=== PATIENT | male | born 2005 | race Two or more races ===

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

== ENCOUNTER 2024-06-20 11:41 | Inpatient (IN) | payer MEDICAID, OTHER ==
[~2024-06-20] VITALS: Ht 182.9 cm; Wt 86.4 kg
--- NOTE | 2024-06-20 12:16 | ED.PDOC ---
GI ASSESSMENT HPI Comments 18 y/o M, with no prior medical history presents to the ED for CC of abdominal pain. Patient states, he has been experiencing RLQ abdominal pain with associated nausea, vomiting, and diarrhea since last night (06/19/24). Patient denies fever, chills, sweats, body-aches, or melena. No other symptoms or modifying factors present at this time. Chief Complaint: Abdominal Pain Time Seen by MD: 12:00 Primary Care Provider: NOHEMI Mendoza Notes: Nurses Notes, Medications, Allergies Allergies: Coded Allergies: NO KNOWN ALLERGIES (Unverified , 11/19/20) Information Source: Patient Mode of Arrival: Ambulatory Timing: Hours Duration: Since onset Prehospital treatment: None Quality: None Vomitus: Watery Stool: Watery Severity: Moderate Recent: None Recent Hx of: None Pain Location: RLQ Modifying Factors: Nothing Associated sign and symptoms: Nausea, Vomiting, Diarrhea, Abdominal Pain Past Medical History PAST MEDICAL HISTORY: Denies Surgical History: Denies all surgeries Family History Family History: Unknown Social History Smoker: Non-Smoker Alcohol: Denies ETOH Use Drugs: Denies Drug Use Lives In: Home Constitutional: denies: chills, diaphoresis, fatigue, fever, malaise, sweats, weakness, others EENTM: denies: blurred vision, double vision, ear bleeding, ear discharge, ear drainage, ear pain, ear ringing, eye pain, eye redness, hearing loss, mouth pain, mouth swelling, nasal discharge, nose bleeding, nose congestion, nose pain, photophobia, tearing, throat pain, throat swelling, voice changes, others Respiratory: denies: cough, hemoptysis, orthopnea, SOB at rest, shortness of breath, SOB with excertion, stridor, wheezing, others Cardiovascular: denies: chest pain, dizzy spells, diaphoresis, Dyspnea on exertion, edema, irregular heart beat, left arm pain, lightheadedness, palpitations, PND, syncope, others Gastrointestinal: reports: abdominal pain, diarrhea, nausea, vomiting; denies: abdomen distended, blood streaked bowels, constipated, dysphagia, difficulty swallowing, hematemesis, melena, poor appetite, poor fluid intake, rectal bleeding, rectal pain, others Genitourinary: denies: burning, dysuria, flank pain, frequency, hematuria, incontinence, penile discharge, penile sore, pain, testicle pain, testicle swelling, urgency, others Neurological: denies: dizziness, fainting, headache, left sided numbness, left sided weakness, numbness, paresthesia, pre-existing deficit, right sided numbness, right sided weakness, seizure, speech problems, tingling, tremors, weakness, others Musculoskeletal: denies: back pain, gout, joint pain, joint swelling, muscle pain, muscle stiffness, neck pain, others Integumetry: denies: bruises, change in color, change in hair/nails, dryness, laceration, lesions, lumps, rash, wounds, others Allergic/Immunocompromised: denies: Difficulty Healing, Frequent Infections, Hives, Itching, others Hematologic/Lymphatic: denies: anemia, blood clots, easy bleeding, easy bruising, swollen glands, others Endocrine: denies: excessive hunger, excessive sweating, excessive thirst, excessive urination, flushing, intolerance to cold, intolerance to heat, unexplained weight gain, unexplained weight loss, others Psychiatric: denies: anxiety, bipolar disorder, depression, hopeless, panic disorder, schizophrenia, sleepless, suicidal, others All Other Systems: Reviewed and Negative Physical Exam General Appearance: No Apparent Distress, Normal HEENT: Normal ENT Inspection, Pharynx Normal, TMs Normal Neck: Full Range of Motion, Non-Tender, Normal, Normal Inspection Respiratory: Chest Non-Tender, Lungs Clear, No Accessory Muscle Use, No Respiratory Distress, Normal Breath Sounds Cardiovascular: No Edema, No Murmur, No Gallop, Normal Peripheral Pulses, Regular Rate/Rhythm Breast Exam: Deferred Gastrointestinal: No Organomegaly, No Pulsatile Mass, Normal Bowel Sounds, Tenderness (RLQ) Genitalia: Deferred Pelvic: Deferred Rectal: Deferred Extremities: No calf tenderness, Normal capillary refill, Normal inspection, Normal range of motion, Non-tender, No pedal edema Musculoskeletal : Apperance: Normal Neurologic: Alert, allergist/immunologist II-XII nml as Tested, No Motor Deficits, Normal Affect, Normal Mood, No Sensory Deficits Cerebellar Function: Normal Reflexes: Normal Skin: Dry, Normal Color, Warm Lymphatic: No Adenopathy Was a procedure done? Was a procedure done?: No GI differential Dx Differential Diagnosis: Appendicitis, Diverticular disease, Urolithiasis X-Ray, Labs, Meds, VS Vital Signs Date Time Temp Pulse Resp B/P (MAP) Pulse Ox O2 Delivery O2 Flow Rate FiO2 06/20/24 12:52 78 18 136/74 06/20/24 12:22 90 15 110/79 06/20/24 12:14 97.9 90 15 110/79 (89) 99 97.9 06/20/24 12:13 Room Air* 0 21 06/20/24 11:55 97.5 97 16 105/79 (88) 95 97.5 Lab Test 06/20/24 12:09 06/20/24 11:56 Range/Units White Blood Count 18.1 H 4.4-10.8 10^3/uL Red Blood Count 5.59 4.5-5.90 10^6/uL Hemoglobin 16.8 13.5-17.5 g/dL Hematocrit 48.3 41.0-53.0 % Mean Corpuscular Volume 86.5 80.0-100.0 fL Mean Corpuscular Hemoglobin 30.1 28.0-32.0 pg Mean Corpuscular Hemoglobin Concent 34.8 32.0-36.0 g/dL Red Cell Distribution Width 13.1 11.8-14.3 % Platelet Count 329 140-450 10^3/uL Mean Platelet Volume 7.0 6.9-10.8 fL Neutrophils (%) (Auto) 89.0 H 37.0-80.0 % Lymphocytes (%) (Auto) 4.2 L 10.0-50.0 % Monocytes (%) (Auto) 5.5 0.0-12.0 % Eosinophils (%) (Auto) 1.2 0.0-7.0 % Basophils (%) (Auto) 0.1 0.0-2.0 % Neutrophils # (Auto) 16.1 H 1.6-8.6 10 ^3/uL Lymphocytes # (Auto) 0.8 0.4-5.4 10 ^3/uL Monocytes # (Auto) 1.0 0-1.3 10 ^3/uL Eosinophils # (Auto) 0.2 0-0.8 10 ^3/uL Basophils # (Auto) 0 0-0.2 10 ^3/uL Nucleated Red Blood Cells 0.0 % Sodium Level 137 136-145 mmol/L Potassium Level 4.1 3.5-5.1 mmol/L Chloride Level 103 98-107 mmol/L Carbon Dioxide Level 27 20-31 mmol/L Anion Gap 7 5-15 Blood Urea Nitrogen 9 9-23 mg/dL Creatinine 1.04 0.700-1.30 mg/dL Glomerular Filtration Rate Calc 105 >90 mL/min BUN/Creatinine Ratio 8.7 L 10.0-20.0 Serum Glucose 105 74-106 mg/dL Lactic Acid Level 1.2 0.4-2.0 mmol/L Calcium Level 9.9 8.7-10.4 mg/dL Urine Color Yellow Yellow Urine Clarity Turbid H Clear Urine pH 6.0 5.0-9.0 Urine Specific [place] 1.021 1.001-1.035 Urine Protein 1+ H Negative Urine Ketones Negative Negative Urine Blood Negative Negative /uL Urine Nitrite Negative Negative Urine Bilirubin Negative Negative Urine Urobilinogen Normal Negative mg/dL Urine Leukocyte Esterase Negative Negative /uL Urine RBC 5 0 - 3 /hpf Urine Microscopic WBC 10 H 0-3 /HPF Urine Squamous Epithelial Cells Few <5 /hpf Urine Bacteria Many H None Seen /hpf Urine Mucus Few None Seen Urine Sperm Present None Seen /hpf Urine Glucose Normal Normal mg/dL Current Medications Medications (Trade) Dose Ordered Sig/Siomara Route Start Time Stop Time Status Last Admin Morphine Sulfate 4 mg ONCE ONCE IV 06/20/24 12:00 06/20/24 12:01 DC 06/20/24 12:22 Sodium Chloride 1,000 ml @ 1,000 mls/hr Q1H ONCE IV 06/20/24 12:00 06/20/24 12:59 DC 06/20/24 12:23 Ondansetron HCl (Zofran) 4 mg ONCE ONCE IV 06/20/24 12:00 06/20/24 12:01 DC 06/20/24 12:23 [place] [id number] Ph: [phone] DIAGNOSTIC IMAGING Diagnostic Imaging Report : [id number] Signed PATIENT: LEA FRAIRE IIACCT: [id number] UNIT: [id number] : 2005 LOC: ER ROOM / BED: / AGE / SEX: 18 / M ADM STATUS: REG ER SERVICE 1155 ORDERING PHYSICIAN: IVETTE OGDEN MD PROCEDURE(s): ABPLIV - CT AB PEL WITH IV CON ONLY REASON: rlq pain ORDER NUMBER(s): [id number], ACCESSION NUMBER(s): [id number] Exam: CT CT AB PEL WITH IV CON ONLY History: rlq pain COMPARISON: None Technique: Multidetector spiral CT of the abdomen and pelvis was performed from lung bases to pubic symphysis. Intravenous contrast was administered during this examination. Portal venous imaging was obtained. Axial, coronal and sagittal multiplanar reformats were performed by the technologist on a separate workstation. Radiation Dose : Abdomen/Pelvis: CTDIvol 7.66 mGy, DLP 469.13 mGy*cm. CONTRAST: Type of contrast: Omni 300 Contrast injected: 100 mL Findings: Lung Bases: No acute or significant lung base finding. Normal heart size. No pleural or pericardial effusion. Liver: The liver is normal in size. No focal lesions. Normal hepatic vascular enhancement. Gallbladder and biliary Tree: Unremarkable Spleen: Unremarkable Pancreas: The pancreas is normal in appearance without focal lesions or abnormal enhancement. Adrenal Glands: Unremarkable Kidneys: No hydronephrosis. Bladder: Unremarkable Bowel: The stomach is grossly normal in appearance. Small bowel and colon are normal in caliber and distribution. Normal appendix is visualized in the right lower quadrant without findings of appendicitis. Fluid density throughout the colon. Ascites: Absent Lymphadenopathy: Subcentimeter mesenteric lymph nodes. Abdominal wall and Mesentery: Unremarkable. Vasculature: The visualized abdominal aorta is normal in size and caliber. Abdominal and pelvic vessels demonstrate normal enhancement. Pelvic Organs: Unremarkable Musculoskeletal: No aggressive focal bony lesions, acute fractures or dislocation. IMPRESSION: 1. No definite acute abdominal or pelvic finding. Normal-appearing appendix identified. Fluid throughout the colon. Suspect a diarrheal illness. Clinical correlation and continued follow-up is recommended. Nonspecific mesenteric lymphadenopathy could be reactive. Radiation optimization: All CT scans at this facility use at least one of these dose optimization techniques: Automated exposure control mA and/or kV adjustment per patient size (includes targeted exams where dose is matched to clinical indication) or iterative reconstruction. HS:Y ATED BY: DANNIE DON MD DICTATED DATE/TIME: 06/20/24 1400 SIGNED BY: DANNIE DON MD SIGNED DATE/TIME: 05/06/25 1400 CC: Time of 1ST Reevaluation: 12:30 Reevaluation 1ST: Unchanged Patient Education/Counseling: Diagnosis, Treatment Family Education/Counseling: No Family Present Departure 1 Departure Time of Disposition: 14:55 (Patient presented with abdominal pain that was concerning for possible appendicits, gastritis, cholecystitis, colitis, gastroenteritis, sbo, or orther possible surgical emergency. Data: 1. I ordered and reviewed the result of at least 3 labs including a CBC, BMP, and Urinalysis. 2. I independently interpreted the following tests: CT Abdoment and Pelvis is concerning for enteritis .Risk:This patient has a high risk of morbidity due to further diagnostic testing or treatment and may suffer from an acute abdominal process disorder. Workup reveals enteritis and patient should be admitted for further workup. and possible expert consultation. ) Impression: Primary Impression: Enteritis Additional Impressions: Abdominal pain Qualified Codes: R10.31 - Right lower quadrant pain Dehydration Disposition: ADMITTED INPATIENT Admit to: Med Surg Condition: Serious Critical Care Note Critical Care Time?: Yes Critical care comment: Intractable abdominal pain Authorized and Performed by: Ivette Ogden MD Total critical care time: Approximately 39 minutes Due to a high probability of clinically significant, life threatening deterioration, the patient required my highest level of preparedness to intervene emergently and I personally spent this critical care time directly and personally managing the patient. This critical care time included obtaining a history; examining the patient; pulse oximetry; ordering and review of studies; arranging urgent treatment with development of a management plan; evaluation of patient's response to treatment; frequent reassessment; and, discussions with other providers. This critical care time was performed to assess and manage the high probability of imminent, life-threatening deterioration that could result in multi-organ failure. It was exclusive of separately billable procedures and treating other patients and teaching time. Please see my other sections and the rest of the note for further information on patient assessment and treatment. Stability Stability form required: No Heart Score Heart Score: Heart Score Response (Comments) Value History N/A 0 EKG N/A 0 Age N/A 0 Risk Factors N/A 0 Troponin N/A 0 Total 0 I personally scribed for IVETTE OGDEN MD ([email or web address]) on 06/20/24 at 12:16. Electronically submitted by Lindsay Turner ([email or web address]). I personally scribed for IVETTE OGDEN MD ([email or web address]) on 06/20/24 at 14:06. Electronically submitted by Lindsay Turner ([email or web address]). IVETTE OGDEN MD June 20, 2024 12:16
[2024-06-20] MEDS: MORPHINE SULFATE 4 MG/ML SYR/VIAL IV ONE (12:22)
[2024-06-20] MEDS: ONDANSETRON HCL 4 MG/2 ML VIAL IV ONE (12:23)
[2024-06-20] MEDS: SODIUM CHLORIDE 0.9% 1,000 ML IV ONE ×2 (12:23→18:00)
[2024-06-20 12:28] LABS: Basophils # (auto) 0 10 ^3/uL (0-0.2); Basophils % (auto) 0.1 % (0.0-2.0); Eosinophils # (auto) 0.2 10 ^3/uL (0-0.8); Eosinophils % (auto) 1.2 % (0.0-7.0); Hematocrit 48.3 % (41.0-53.0); Hemoglobin 16.8 g/dL (13.5-17.5); Lymphocytes # (auto) 0.8 10 ^3/uL (0.4-5.4); Lymphocytes % (auto) 4.2 % (10.0-50.0); Mean Corpuscular Hemoglobin 30.1 pg (28.0-32.0); Mean Corpuscular Hgb Conc. 34.8 g/dL (32.0-36.0); Mean Corpuscular Volume 86.5 fL (80.0-100.0); Monocytes % (auto) 5.5 % (0.0-12.0); Neutrophils # (auto) 16.1 10 ^3/uL (1.6-8.6); Platelet Count (auto) 329 10^3/uL (140-450); Red Blood Cells 5.59 10^6/uL (4.5-5.90); Red Cell Distribution Width 13.1 % (11.8-14.3); White Blood Cell 18.1 10^3/uL (4.4-10.8)
[2024-06-20 12:37] LABS: Chloride 103 mmol/L (98-107); Potassium 4.1 mmol/L (3.5-5.1); Sodium 137 mmol/L (136-145)
[2024-06-20 12:38] LABS: Anion Gap 7 (5-15); Calcium 9.9 mg/dL (8.7-10.4); Carbon Dioxide 27 mmol/L (20-31)
[2024-06-20 12:43] LABS: BUN/Creatinine Ratio 8.7 (10.0-20.0); Blood Urea Nitrogen 9 mg/dL (9-23); Glucose 105 mg/dL (74-106)
[2024-06-20] MEDS: diphenhdrAMINE HCL 50 MG/1 ML VL IV ONE (12:58)
[2024-06-20] MEDS: IOHEXOL 300 MG/ML 100ML BOTTLE IJ ONE (13:45)
[2024-06-20 13:59] LABS: Urine Bacteria MANY /hpf (None Seen); Urine Blood Negative /uL (Negative); Urine Clarity Turbid (Clear); Urine Color Yellow (Yellow); Urine Mucus FEW (None Seen); Urine Protein, UAD 1+ (Negative); Urine Specific Gravity 1.021 (1.001-1.035); Urine Sperm PRESENT /hpf (None Seen); Urine Squamous Epithelial Cell FEW /hpf (<5); Urine Urobilinogen Normal (Negative); Urine WBC 10 /HPF (0-3)
--- NOTE | 2024-06-20 14:03 | DVH ---
Exam: CT CT AB PEL WITH IV CON ONLY History: rlq pain COMPARISON: None Technique: Multidetector spiral CT of the abdomen and pelvis was performed from lung bases to pubic symphysis. Intravenous contrast was administered during this examination. Portal venous imaging was obtained. Axial, coronal and sagittal multiplanar reformats were performed by the technologist on a separate workstation. Radiation Dose : Abdomen/Pelvis: CTDIvol 7.66 mGy, DLP 469.13 mGy*cm. CONTRAST: Type of contrast: Omni 300 Contrast injected: 100 mL Findings: Lung Bases: No acute or significant lung base finding. Normal heart size. No pleural or pericardial effusion. Liver: The liver is normal in size. No focal lesions. Normal hepatic vascular enhancement. Gallbladder and biliary Tree: Unremarkable Spleen: Unremarkable Pancreas: The pancreas is normal in appearance without focal lesions or abnormal enhancement. Adrenal Glands: Unremarkable Kidneys: No hydronephrosis. Bladder: Unremarkable Bowel: The stomach is grossly normal in appearance. Small bowel and colon are normal in caliber and d istribution. Normal appendix is visualized in the right lower quadrant without findings of appendicit is. Fluid density throughout the colon. Ascites: Absent Lymphadenopathy: Subcentimeter mesenteric lymph nodes. Abdominal wall and Mesentery: Unremarkable. Vasculature: The visualized abdominal aorta is normal in size and caliber. Abdominal and pelvic vess els demonstrate normal enhancement. Pelvic Organs: Unremarkable Musculoskeletal: No aggressive focal bony lesions, acute fractures or dislocation. IMPRESSION: 1. No definite acute abdominal or pelvic finding. Normal-appearing appendix identified. Fluid throug hout the colon. Suspect a diarrheal illness. Clinical correlation and continued follow-up is recomm ended. Nonspecific mesenteric lymphadenopathy could be reactive. Radiation optimization: All CT scans at this facility use at least one of these dose optimization anisha hniques: Automated exposure control mA and/or kV adjustment per patient size (includes targeted exams where dose is matched to clinical indication) or iterative reconstruction. HS:Y
[2024-06-20] MEDS: ceFAZolin 2 GM/D5W50ml 50 ML IV ONE (15:00)
[2024-06-20] MEDS ORDERED: SODIUM CHLORIDE 0.9% 2,000 ML IV ONE (15:00)
--- NOTE | 2024-06-20 15:43 | DVHHP2 ---
History of Present Illness Reason for Visit: abd pain and diarrhea History of Present Illness 18-year-old male with a history of asthma and prior stress-related abdominal ulcers, presenting with acute abdominal pain, intractable vomiting, and diarrhea. The patient reports waking up with sharp right-sided abdominal pain and has since experienced eight episodes of non-bloody emesis along with multiple episodes of non-bloody diarrhea. He denies any sick contacts, recent antibiotic use, or prior similar episodes. He also denies chest pain, shortness of breath, back pain, black stools, or fevers. In the emergency department, CBC showed leukocytosis with WBC of 18.1, but was otherwise unremarkable. BMP was normal. CT abdomen/pelvis showed findings consistent with diarrheal illness; no signs of appendicitis, obstruction, or perforation noted. will admit to medicine Past Medical History see hpi above Past Surgical History see hpi above Family History Reviewed, non-contributory to the management of this case. Past Social History The patient lives at home, denies smoking, alcohol or illicit drugs abuse. Review of Systems Constitutional: No: Fever, Chills, Sweats, Weakness, Malaise, Other Eyes: No: Pain, Vision change, Conjunctivae inflammation, Eyelid inflammation, Other, Redness ENT: No: Ear pain, Ear discharge, Nose pain, Nose discharge, Nose congestion, Mouth pain, Mouth swelling, Throat pain, Throat swelling, Other Respiratory: No: Cough, Dry, Shortness of breath, SOB with excertion, Wheezing, Hemoptysis, Pleuritic Pain, Sputum, Wheezing, Other Cardiovascular: No: Chest Pain, Palpitations, Orthopnea, Paroxysmal Noc. Dyspnea, Edema, Lt Headedness, Other Gastrointestinal: Nausea, Vomiting, Abdominal Pain, Diarrhea; No: Constipation, Melena, Hematochezia, Other Genitourinary: No Dysuria, No Frequency, No Incontinence, No Hematuria, No Retention, No Other Musculoskeletal: No: other, neck pain, shoulder pain, arm pain, back pain, hand pain, leg pain, foot pain Skin: No: Rash, Lesions, Jaundice, Bruising, Other Neurological: No: Weakness, Numbness, Incoordination, Change in speech, Confusion, Seizures, Other Allergies: Uncoded Allergies: PCN (Adverse Reaction, Severe, 06/20/24) Exam Vital Signs Vital Signs Date Time Temp Pulse Resp B/P (MAP) Pulse Ox O2 Delivery O2 Flow Rate FiO2 06/20/24 14:50 97.5 96 16 110/83 (92) 97 97.5 06/20/24 12:13 Room Air* 0 21 General Appearance: Alert, Oriented X3, Cooperative, No acute distress HEENT: Atraumatic, PERRLA, EOMI, Mucous membr. moist/pink Respiratory: Clear to auscultation, Normal air movement Cardiovascular: Regular rate, Normal S1, Normal S2, No murmurs Abdominal: Normal bowel sounds, Soft, No hepatospenomegaly, No masses, Other (Right mid quadrant guarding and rebound tenderness) Extremities: No clubbing, No cyanosis, No edema, Normal pulses, No tenderness/swelling Skin: No rashes, No breakdown, No significant lesion Neuro: Normal gait, Normal speech, Strength at 5/5 X4 ext, Normal tone, Sensation intact, Cranial nerves 3-12 NL Psych/Mental Status: Mental status NL, Mood NL Labs/Xrays CT scan abdomen pelvis shows diarrhea illness I reviewed labs, imaging CT scan abdomen pelvis, EKG and all diagnostic studies on this patient from ED records and the medical chart Labs Test 06/20/24 12:09 06/20/24 11:56 Range/Units White Blood Count 18.1 H 4.4-10.8 10^3/uL Red Blood Count 5.59 4.5-5.90 10^6/uL Hemoglobin 16.8 13.5-17.5 g/dL Hematocrit 48.3 41.0-53.0 % Mean Corpuscular Volume 86.5 80.0-100.0 fL Mean Corpuscular Hemoglobin 30.1 28.0-32.0 pg Mean Corpuscular Hemoglobin Concent 34.8 32.0-36.0 g/dL Red Cell Distribution Width 13.1 11.8-14.3 % Platelet Count 329 140-450 10^3/uL Mean Platelet Volume 7.0 6.9-10.8 fL Neutrophils (%) (Auto) 89.0 H 37.0-80.0 % Lymphocytes (%) (Auto) 4.2 L 10.0-50.0 % Monocytes (%) (Auto) 5.5 0.0-12.0 % Eosinophils (%) (Auto) 1.2 0.0-7.0 % Basophils (%) (Auto) 0.1 0.0-2.0 % Neutrophils # (Auto) 16.1 H 1.6-8.6 10 ^3/uL Lymphocytes # (Auto) 0.8 0.4-5.4 10 ^3/uL Monocytes # (Auto) 1.0 0-1.3 10 ^3/uL Eosinophils # (Auto) 0.2 0-0.8 10 ^3/uL Basophils # (Auto) 0 0-0.2 10 ^3/uL Nucleated Red Blood Cells 0.0 % Sodium Level 137 136-145 mmol/L Potassium Level 4.1 3.5-5.1 mmol/L Chloride Level 103 98-107 mmol/L Carbon Dioxide Level 27 20-31 mmol/L Anion Gap 7 5-15 Blood Urea Nitrogen 9 9-23 mg/dL Creatinine 1.04 0.700-1.30 mg/dL Glomerular Filtration Rate Calc 105 >90 mL/min BUN/Creatinine Ratio 8.7 L 10.0-20.0 Serum Glucose 105 74-106 mg/dL Lactic Acid Level 1.2 0.4-2.0 mmol/L Calcium Level 9.9 8.7-10.4 mg/dL Urine Color Yellow Yellow Urine Clarity Turbid H Clear Urine pH 6.0 5.0-9.0 Urine Specific [place] 1.021 1.001-1.035 Urine Protein 1+ H Negative Urine Ketones Negative Negative Urine Blood Negative Negative /uL Urine Nitrite Negative Negative Urine Bilirubin Negative Negative Urine Urobilinogen Normal Negative mg/dL Urine Leukocyte Esterase Negative Negative /uL Urine RBC 5 0 - 3 /hpf Urine Microscopic WBC 10 H 0-3 /HPF Urine Squamous Epithelial Cells Few <5 /hpf Urine Bacteria Many H None Seen /hpf Urine Mucus Few None Seen Urine Sperm Present None Seen /hpf Urine Glucose Normal Normal mg/dL Assessment/Plan Assessment/Plan 18-year-old male with acute onset of abdominal pain, vomiting, and diarrhea, elevated WBC, consistent with infectious or inflammatory gastroenteritis. Acute Gastroenteritis vs. Infectious Diarrhea CT findings consistent with diarrheal illness 8 episodes of vomiting since midnight No recent antibiotic use, no sick contacts WBC elevated at 18.1 Plan: Admit to Med/Surg for further evaluation and supportive care IV fluid resuscitation NS Stool studies: C. diff PCR, stool culture clr liquid then advance diet as tolerated Antiemetics: Zofran IV PRN Antidiarrheal therapy only if no concern for infectious etiology Monitor for signs of dehydration and electrolyte abnormalities ordered bentyl ordered morphine prn pain acute Abdominal Pain, Right-sided Pain likely secondary to GI illness No signs of surgical abdomen on CT Plan: Pain control with IV morphine Repeat abdominal exam every shift Order lipase to rule out pancreatitis if not already done Monitor for any clinical changes or peritoneal signs acute Leukocytosis Likely reactive due to GI inflammation or infection Plan: Trend CBC daily Monitor for signs of systemic infection Consider empiric antibiotics if clinical status worsens ordered c diff stool fu results History of Stress Ulcers (Gastritis with bleeding) No active signs of upper GI bleeding Plan: Continue GI prophylaxis: pantoprazole 40 mg IV daily Monitor hemoglobin and symptoms Problem List History of stress ulcers Asthma (stable, no exacerbation) FEN / PROPHYLAXIS (PPx) Fluids/Electrolytes/Nutrition IV fluids: NS clr liquid advance diet as tolerated DVT Prophylaxis SCDs GI Prophylaxis Pantoprazole 40 mg IV daily DISPOSITION Admit to Med/Surg for IV hydration, diagnostic workup, and symptom management for acute GI illness. Monitor closely for signs of infectious diarrhea, dehydration, or surgical abdomen. Await stool studies and lipase for further clarification. Plan discussed with: Patient Date of Service: June 20, 2024 Billing Provider: RIP YU DNP Common Visit Codes: [id number] INP/OBS CARE (HIGH) RIP YU DNP June 20, 2024 15:43
[2024-06-20] MEDS: metroNIDAZOLE 500MG/100ML 100 ML IV ONE ×2 (16:15→18:01)
[2024-06-20] MEDS ORDERED: DOCUSATE SOD 100 MG CAP PO PRN (16:15)
[2024-06-20] MEDS ORDERED: NITROGLYCERIN 0.4 MG SL TAB SL PRN (16:15)
[2024-06-20] MEDS: DICYCLOMINE HCL 10 MG CAP PO ONE (18:00)
[2024-06-20] MEDS: DICYCLOMINE HCL 10 MG CAP PO SCH (18:00)
[2024-06-20] MEDS: PANTOPRAZOLE 40 MG/10 ML VIAL INJ IV ONE (18:01)
[2024-06-20] MEDS: ONDANSETRON HCL 4 MG/2 ML VIAL IV PRN (18:01)
[2024-06-20] MEDS: cefTRIAXone 1GM/50ML D5W 50 ML IV ONE (18:01)
[2024-06-20] MEDS: MORPHINE SULFATE INJ 2 MG/ml SYRG IV PRN (18:13)
[2024-06-20 23:10] VITALS: BP 103/64; PULSE 76; PULSE 81; RESP 17; RESP 18; TEMP 98.3; O2SAT 99
[2024-06-20] MEDS: metroNIDAZOLE 500MG/100ML 100 ML IV SCH (23:51)
[2024-06-21] VITALS (7 sets, daily range): BP systolic 97–117; BP diastolic 40–76; PULSE 50–83; RESP 14–18; TEMP 97.5–98.4; O2SAT 96–100
[2024-06-21] MEDS: SODIUM CHLORIDE 0.9% 1,000 ML IV SCH (00:15)
[2024-06-21 06:36] LABS: Basophils # (auto) 0 10 ^3/uL (0-0.2); Basophils % (auto) 0.1 % (0.0-2.0); Eosinophils # (auto) 0.3 10 ^3/uL (0-0.8); Eosinophils % (auto) 3.3 % (0.0-7.0); Hematocrit 38.6 % (41.0-53.0); Hemoglobin 13.6 g/dL (13.5-17.5); Lymphocytes # (auto) 1.6 10 ^3/uL (0.4-5.4); Lymphocytes % (auto) 17.3 % (10.0-50.0); Mean Corpuscular Hemoglobin 30.6 pg (28.0-32.0); Mean Corpuscular Hgb Conc. 35.3 g/dL (32.0-36.0); Mean Corpuscular Volume 86.7 fL (80.0-100.0); Monocytes # (auto) 0.8 10 ^3/uL (0-1.3); Monocytes % (auto) 9.1 % (0.0-12.0); Neutrophils # (auto) 6.4 10 ^3/uL (1.6-8.6); Neutrophils % (auto) 70.2 % (37.0-80.0); Platelet Count (auto) 244 10^3/uL (140-450); Red Blood Cells 4.45 10^6/uL (4.5-5.90); Red Cell Distribution Width 13.6 % (11.8-14.3); White Blood Cell 9.1 10^3/uL (4.4-10.8)
[2024-06-21 07:18] LABS: Alanine Aminotransferase 10 U/L (7-40); Alkaline Phosphatase 85 U/L (46-116); Anion Gap 8 (5-15); BUN/Creatinine Ratio 8.2 (10.0-20.0); Carbon Dioxide 25 mmol/L (20-31); Glucose 92 mg/dL (74-106); Potassium 3.8 mmol/L (3.5-5.1); Sodium 140 mmol/L (136-145); Total Protein 6.6 g/dL (5.7-8.2)
[2024-06-21 07:20] LABS: Albumin 3.9 g/dL (3.2-4.8)
[2024-06-21 07:21] LABS: Aspartate Aminotransferase < 8 U/L (13-40); Bilirubin, Total 1.3 mg/dL (0.2-1.0); Blood Urea Nitrogen 8 mg/dL (9-23); Chloride 107 mmol/L (98-107)
[2024-06-21] MEDS: PANTOPRAZOLE 40 MG/10 ML VIAL INJ IV SCH (10:48)
[2024-06-21] MEDS: cefTRIAXone 1GM/50ML D5W 50 ML IV SCH (10:49)
--- NOTE | 2024-06-21 13:05 | DVHPNRES ---
Progress Note Date Seen: June 21, 2024 Resident Creating Document: BASILIA LEMA RESIDENT Has the PT tested + for MRSA If YES, has PT been informed?: No Medical Necessity Reason Pt with a Central, PICC or Fol: No Medical Necessity Reason History of Present Illness 18-year-old male with a history of asthma and prior stress-related abdominal ulcers, presenting with acute abdominal pain, intractable vomiting, and diarrhea. The patient reports waking up with sharp right-sided abdominal pain and has since experienced eight episodes of non-bloody emesis along with multiple episodes of non-bloody diarrhea. He denies any sick contacts, recent antibiotic use, or prior similar episodes. He also denies chest pain, shortness of breath, back pain, black stools, or fevers. In the emergency department, CBC showed leukocytosis with WBC of 18.1, but was otherwise unremarkable. BMP was normal. CT abdomen/pelvis showed findings consistent with diarrheal illness; no signs of appendicitis, obstruction, or perforation noted. will admit to medicine Past Medical History: see hpi above Past Surgical History:see hpi above Family History:Reviewed, non-contributory to the management of this case. Past Social History: The patient lives at home, denies smoking, alcohol or illicit drugs abuse. PN: 06/22/2023 Patient is a 18-year-old male with a history of asthma presented to the ED with abdominal pain intractable vomiting and diarrhea. According to the patient the abdominal pain actually woke him off asleep around midnight yesterday. He was unable to stand so went to the kept going to the bathroom because of diarrhea. In the morning patient felt a little feverish felt warm to touch when he mentioned his temperature it was 101.2 thus prompting his visit to the ED. in the ED his vital signs temperature was 90� 7.6 however his heart rate was 97, and also 104. Initial lab work revealed leukocytosis, and patient had abdominal scan which revealed evidence of diarrheal illness. Patient was therefore started on antibiotics fluids and admitted for further evaluation. Subjective Review of Systems Constitutional: Denies fever no chills no feeling of malaise, Chills and fever at home HEENT: Denies headache, ear pain, ear discharges, conjunctivitis, nasal discharge throat pain Cardiovascular: Denies chest pain, palpitation, orthopnea, PND, or pedal edema Respiratory: Denies shortness of breath, cough cough, sputum production, hemoptysis, GI: RLQ abdominal pain, nausea, vomiting, diarrhea, NO hematemesis, hematochezia, : Denies frequency, urgency, hematuria, Endocrine: Denies unintentional weight gain or weight loss, feeling of hot flashes, Jd: Denies easy bruising, bleeding disorders, epistaxis Musculoskeletal: Denies joint pains, muscle aches Psych: No evidence of depression, crow, suicidal ideation Objective vital signs Vital Sign Date Time Temp Pulse Resp B/P (MAP) Pulse Ox O2 Delivery O2 Flow Rate FiO2 06/21/24 08:47 97.9 82 14 117/76 (90) 100 97.9 06/20/24 23:10 Room Air* 0 21 Total Intake and Output 06/20/24 06/20/24 06/21/24 15:00 23:00 07:00 Intake Total 250 ml Output Total 0 ml Balance 250 ml medications Current Medications Medications Dose Ordered Sig/Siomara Route Start Time Stop Time Status Last Admin Dose Admin Ondansetron HCl 4 mg Q4HP PRN IV 06/20/24 16:15 06/20/24 18:01 4 MG Docusate Sodium 100 mg BIDPRN PRN PO 06/20/24 16:15 Morphine Sulfate 2 mg Q4HPRN PRN IV 06/20/24 16:15 06/20/24 18:13 2 MG Nitroglycerin 0.4 mg Q5MINP PRN SL 06/20/24 16:15 Dicyclomine HCl 20 mg QID PO 06/20/24 18:00 06/21/24 10:49 20 MG Sodium Chloride 1,000 ml @ 125 mls/hr Q8H IV 06/20/24 16:15 06/21/24 08:15 125 MLS/HR Ceftriaxone Sodium 50 ml @ 100 mls/hr DAILY@09 IV 06/21/24 09:00 06/21/24 10:49 100 MLS/HR Metronidazole 100 ml @ 100 mls/hr Q8HR IV 06/20/24 22:00 06/21/24 06:30 100 MLS/HR Pantoprazole Sodium 40 mg DAILY IV 06/21/24 10:00 06/21/24 10:48 40 MG Examination General Appearance: Alert, Oriented X3, Cooperative, No acute distress HEENT: Atraumatic, PERRLA, EOMI, Mucous membrane moist/pink Respiratory: Clear to auscultation, Normal air movement Cardiovascular: Regular rate, Normal S1, Normal S2, No murmurs, no chest wall tenderness Abdominal: Tenderness in the RLQ Extremities: No clubbing, No cyanosis, No edema, Normal pulses, No tenderness/swelling Skin: No rashes, No breakdown, No significant lesion Neuro: Normal gait, Normal speech, Strength at 5/5 X4 ext, Normal tone, Sensation intact, Cranial nerves 3-12 NL, Reflexes 2+, Open wound right big toe Psych/Mental Status: Mental status NL, Mood NL laboratory and microbiology Laboratory Tests 06/21/24 05:26 Test 06/21/24 05:26 Range/Units Serum Glucose 92 74-106 mg/dL Microbiology Date/Time Source Procedure Growth Status 06/20/24 18:22 Stool Stool Culture - Preliminary Resulted 06/20/24 18:22 Stool Shiga Toxin I & II Pending Resulted 06/20/24 18:22 Stool Clostridium difficile Toxin Assay Pending Resulted 06/20/24 12:09 Blood Blood Culture - Preliminary NO GROWTH AFTER 24 HOURS OF INCUBATION. Resulted Problem List/Assessment/Plan Problem List/Assessment/Plan Assessment and plan Acute Gastroenteritis likely infectious' Acute leukocytosis Fever 101.2 recorded at o per patient Tachycardia admission Sepsis due to the above -->Continue ceftriaxone and metronidazole Acute abdomen, ruled out Right big toe open wound --> Clean wound --> Wound consult --> Continue antibiotic Asymptomatic pyuria --> Urine culture --> Continue antibiotic Diet: regular DVT Prophylaxis: patient is mobile Goal of care discussed for more than 20 minute: Full code Case and plan discussed with Dr. Espinoza Plan discussed with: Patient My Orders My Orders Orders - BASILIA LEAM Procedure Category Date Status Time Ova & Parasite Exam [place] 06/21/24 Uncollected 07:38 * Wound Consult CONS 06/21/24 Transmitted Date of Service: June 21, 2024 Billing Provider: JEAN VITAL MD Common Visit Codes: [id number] INP/OBS CARE(HIGH) BASILIA LEMA June 21, 2024 13:05 JEAN VITAL MD July 02, 2024 02:36
[2024-06-22 05:00] VITALS: BP 110/61; PULSE 71; RESP 16; TEMP 98.4; O2SAT 97
[2024-06-22 06:14] VITALS: BP 119/55; PULSE 81; RESP 19; TEMP 98.7; O2SAT 99
[2024-06-22 08:00] VITALS: PULSE 68; RESP 18
[2024-06-22 09:00] VITALS: BP 120/62; PULSE 66; RESP 17; TEMP 98.1; O2SAT 99
[2024-06-22 09:00] LABS: Basophils # (auto) 0 10 ^3/uL (0-0.2); Basophils % (auto) 0.2 % (0.0-2.0); Eosinophils # (auto) 0.4 10 ^3/uL (0-0.8); Eosinophils % (auto) 7.2 % (0.0-7.0); Hematocrit 39.6 % (41.0-53.0); Hemoglobin 13.6 g/dL (13.5-17.5); Lymphocytes # (auto) 1.4 10 ^3/uL (0.4-5.4); Lymphocytes % (auto) 25.6 % (10.0-50.0); Mean Corpuscular Hemoglobin 29.8 pg (28.0-32.0); Mean Corpuscular Hgb Conc. 34.3 g/dL (32.0-36.0); Mean Corpuscular Volume 87.1 fL (80.0-100.0); Monocytes # (auto) 0.5 10 ^3/uL (0-1.3); Monocytes % (auto) 9.1 % (0.0-12.0); Neutrophils # (auto) 3.2 10 ^3/uL (1.6-8.6); Neutrophils % (auto) 57.9 % (37.0-80.0); Nucleated Red Blood Cells % 0.1 %; Platelet Count (auto) 235 10^3/uL (140-450); Red Blood Cells 4.55 10^6/uL (4.5-5.90); Red Cell Distribution Width 13.3 % (11.8-14.3); White Blood Cell 5.5 10^3/uL (4.4-10.8)
[2024-06-22 09:09] LABS: Chloride 106 mmol/L (98-107); Sodium 140 mmol/L (136-145)
[2024-06-22 09:10] LABS: Anion Gap 5 (5-15); Carbon Dioxide 29 mmol/L (20-31)
[2024-06-22 09:11] LABS: Calcium 9.2 mg/dL (8.7-10.4); Potassium 3.3 mmol/L (3.5-5.1)
[2024-06-22 09:15] LABS: Glucose 95 mg/dL (74-106)
[2024-06-22] MEDS ORDERED: ACETAMINOPHEN 325 MG TAB PO PRN (09:15)
[2024-06-22 09:18] LABS: BUN/Creatinine Ratio 6.2 (10.0-20.0); Blood Urea Nitrogen < 5 mg/dL (9-23)
[2024-06-22] MEDS: HYDROcodone-ACET 5/325MG TAB PO PRN (09:18)
[2024-06-22 13:00] VITALS: BP 120/60; PULSE 78; RESP 17; TEMP 98; O2SAT 100
[2024-06-22] MEDS: POTASSIUM EFFERVESENT TAB 25 MEQ PO ONE (13:42)
--- NOTE | 2024-06-22 18:07 | DVHDSRES ---
Discharge Summary Date of Admission Resident Creating Document: TOREYBASILIA RESIDENT June 20, 2024 at 16:06 Date of Discharge: June 22, 2024 Admitting Diagnosis Abdominal pain intractable nausea and vomiting Wounds: Right big toe wound Labs/Diagnostic Data: PATIENT: LEA FRAIRE IIACCT: [id number] UNIT: [id number] : 2005 LOC: ER ROOM / BED: / AGE / SEX: 18 / M ADM STATUS: REG ER SERVICE 1155 ORDERING PHYSICIAN: IVETTE OGEDN MD PROCEDURE(s): ABPLIV - CT AB PEL WITH IV CON ONLY REASON: rlq pain ORDER NUMBER(s): [id number], ACCESSION NUMBER(s): [id number] Exam: CT CT AB PEL WITH IV CON ONLY History: rlq pain COMPARISON: None Technique: Multidetector spiral CT of the abdomen and pelvis was performed from lung bases to pubic symphysis. Intravenous contrast was administered during this examination. Portal venous imaging was obtained. Axial, coronal and sagittal multiplanar reformats were performed by the technologist on a separate workstation. Radiation Dose : Abdomen/Pelvis: CTDIvol 7.66 mGy, DLP 469.13 mGy*cm. CONTRAST: Type of contrast: Omni 300 Contrast injected: 100 mL Findings: Lung Bases: No acute or significant lung base finding. Normal heart size. No pleural or pericardial effusion. Liver: The liver is normal in size. No focal lesions. Normal hepatic vascular enhancement. Gallbladder and biliary Tree: Unremarkable Spleen: Unremarkable Pancreas: The pancreas is normal in appearance without focal lesions or abnormal enhancement. Adrenal Glands: Unremarkable Kidneys: No hydronephrosis. Bladder: Unremarkable Bowel: The stomach is grossly normal in appearance. Small bowel and colon are normal in caliber and distribution. Normal appendix is visualized in the right lower quadrant without findings of appendicitis. Fluid density throughout the colon. Ascites: Absent Lymphadenopathy: Subcentimeter mesenteric lymph nodes. Abdominal wall and Mesentery: Unremarkable. Vasculature: The visualized abdominal aorta is normal in size and caliber. Abdominal and pelvic vessels demonstrate normal enhancement. Pelvic Organs: Unremarkable Musculoskeletal: No aggressive focal bony lesions, acute fractures or dislocation. IMPRESSION: 1. No definite acute abdominal or pelvic finding. Normal-appearing appendix identified. Fluid throughout the colon. Suspect a diarrheal illness. Clinical correlation and continued follow-up is recommended. Nonspecific mesenteric lymphadenopathy could be reactive. Radiation optimization: All CT scans at this facility use at least one of these dose optimization techniques: Automated exposure control mA and/or kV adjustment per patient size (includes targeted exams where dose is matched to clinical indication) or iterative reconstruction. HS:Y ATED BY: DANNIE DON MD DICTATED DATE/TIME: 06/20/24 1400 Laboratory Results Test 06/22/24 08:45 06/21/24 05:26 06/20/24 12:09 06/20/24 11:56 White Blood Count 5.5 10^3/uL (4.4-10.8) Red Blood Count 4.55 10^6/uL (4.5-5.90) Hemoglobin 13.6 g/dL (13.5-17.5) Hematocrit 39.6 % (41.0-53.0) Mean Corpuscular Volume 87.1 fL (80.0-100.0) Mean Corpuscular Hemoglobin 29.8 pg (28.0-32.0) Mean Corpuscular Hemoglobin Concent 34.3 g/dL (32.0-36.0) Red Cell Distribution Width 13.3 % (11.8-14.3) Platelet Count 235 10^3/uL (140-450) Mean Platelet Volume 6.7 fL (6.9-10.8) Neutrophils (%) (Auto) 57.9 % (37.0-80.0) Lymphocytes (%) (Auto) 25.6 % (10.0-50.0) Monocytes (%) (Auto) 9.1 % (0.0-12.0) Eosinophils (%) (Auto) 7.2 % (0.0-7.0) Basophils (%) (Auto) 0.2 % (0.0-2.0) Neutrophils # (Auto) 3.2 10 ^3/uL (1.6-8.6) Lymphocytes # (Auto) 1.4 10 ^3/uL (0.4-5.4) Monocytes # (Auto) 0.5 10 ^3/uL (0-1.3) Eosinophils # (Auto) 0.4 10 ^3/uL (0-0.8) Basophils # (Auto) 0 10 ^3/uL (0-0.2) Nucleated Red Blood Cells 0.1 % Sodium Level 140 mmol/L (136-145) Potassium Level 3.3 mmol/L (3.5-5.1) Chloride Level 106 mmol/L (98-107) Carbon Dioxide Level 29 mmol/L (20-31) Anion Gap 5 (5-15) Blood Urea Nitrogen < 5 mg/dL (9-23) Creatinine 0.81 mg/dL (0.700-1.30) Glomerular Filtration Rate Calc 129 mL/min (>90) BUN/Creatinine Ratio 6.2 (10.0-20.0) Serum Glucose 95 mg/dL (74-106) Calcium Level 9.2 mg/dL (8.7-10.4) Total Bilirubin 1.3 mg/dL (0.2-1.0) Aspartate Amino Transferase (AST) < 8 U/L (13-40) Alanine Aminotransferase (ALT) 10 U/L (7-40) Alkaline Phosphatase 85 U/L (46-116) Total Protein 6.6 g/dL (5.7-8.2) Albumin 3.9 g/dL (3.2-4.8) Lactic Acid Level 1.2 mmol/L (0.4-2.0) Lipase 31 U/L (12-53) Urine Color Yellow (Yellow) Urine Clarity Turbid (Clear) Urine pH 6.0 (5.0-9.0) Urine Specific [place] 1.021 (1.001-1.035) Urine Protein 1+ (Negative) Urine Ketones Negative (Negative) Urine Blood Negative /uL (Negative) Urine Nitrite Negative (Negative) Urine Bilirubin Negative (Negative) Urine Urobilinogen Normal mg/dL (Negative) Urine Leukocyte Esterase Negative /uL (Negative) Urine RBC 5 /hpf (0 - 3) Urine Microscopic WBC 10 /HPF (0-3) Urine Squamous Epithelial Cells Few /hpf (<5) Urine Bacteria Many /hpf (None Seen) Urine Mucus Few (None Seen) Urine Sperm Present /hpf (None Seen) Urine Glucose Normal mg/dL (Normal) Other Laboratory Tests 06/22/24 08:45 Brief Hx & Hospital Course: History of Present Illness 18-year-old male with a history of asthma and prior stress-related abdominal ulcers, presenting with acute abdominal pain, intractable vomiting, and diarrhea. The patient reports waking up with sharp right-sided abdominal pain and has since experienced eight episodes of non-bloody emesis along with multiple episodes of non-bloody diarrhea. He denies any sick contacts, recent antibiotic use, or prior similar episodes. He also denies chest pain, shortness of breath, back pain, black stools, or fevers. In the emergency department, CBC showed leukocytosis with WBC of 18.1, but was otherwise unremarkable. BMP was normal. CT abdomen/pelvis showed findings consistent with diarrheal illness; no signs of appendicitis, obstruction, or perforation noted. will admit to medicine Past Medical History: see hpi above Past Surgical History:see hpi above Family History:Reviewed, non-contributory to the management of this case. Past Social History: The patient lives at home, denies smoking, alcohol or illicit drugs abuse. Brief HOSPITAL COURSE Patient is a 18-year-old male with a history of asthma who presented to the ED with abdominal pain, intractable vomiting and diarrhea. According to the patient, the abdominal pain actually woke him off asleep around midnight the night prior to presentation and the pain was associated with diarrhea. Of note patient mentioned that at home his temperature measured 101.2. In the ED his vital signs temperature 90� 7, HR: 97,104. Initial lab work revealed leukocytosis, abdominal scan which revealed evidence of diarrheal illness. Patient was kept NPO, antibiotics and fluids were initiated. By the following day patient was feeling better and we advanced his diet to clear liquid diet. By the following day, his diet was advanced to full liquid diet as he can tolerate. Today, patient is feeling well. He is actually eating real food and ready to go home. Of note, when the patient presented, on examination I found that he had chronic toe wound on the right toe that has been there for a while. Patient told me his horse stepped on him. However, it looks like the wound has been there for a while. Wound Care saw the patient and dressed it. Patient has been advised to follow up with wound care and also with the middle school tutor for further management. Review of systems HEENT: Denies headache, ear pain, ear discharges, conjunctivitis, nasal discharge throat pain Cardiovascular: Denies chest pain, palpitation, orthopnea, PND, or pedal edema Respiratory: Denies shortness of breath, cough cough, sputum production, hemoptysis, GI: RLQ abdominal pain, nausea, vomiting, diarrhea, NO hematemesis, hematochezia, : Denies frequency, urgency, hematuria, Endocrine: Denies unintentional weight gain or weight loss, feeling of hot flashes, Jd: Denies easy bruising, bleeding disorders, epistaxis Musculoskeletal: Denies joint pains, muscle aches Psych: No evidence of depression, crow, suicidal ideation Examination General Appearance: Alert, Oriented X3, Cooperative, No acute distress HEENT: Atraumatic, PERRLA, EOMI, Mucous membrane moist/pink Respiratory: Clear to auscultation, Normal air movement Cardiovascular: Regular rate, Normal S1, Normal S2, No murmurs, no chest wall tenderness Abdominal: Tenderness in the RLQ Extremities: No clubbing, No cyanosis, No edema, Normal pulses, No tenderness/swelling Skin: No rashes, No breakdown, No significant lesion Neuro: Normal gait, Normal speech, Strength at 5/5 X4 ext, Normal tone, Sensation intact, Cranial nerves 3-12 NL, Reflexes 2+, Open wound right big toe Psych/Mental Status: Mental status NL, Mood NL Diagnosis Acute Gastroenteritis likely infectious' Acute leukocytosis Fever 101.2 recorded at per patient Tachycardia admission Sepsis due to the above Acute abdomen, ruled out Right big toe open wound Asymptomatic pyuria Discharge plan Patient is stable for discharge home Start Unasyn for 7 days Pain management with Tylenol if that does not work, ibuprofen Follow up at the discharge Clinic for wound evaluation for 7 days Follow up with podiatry for wound care Continue we will liquid diet for 3 days and had advance as can tolerate Discharge plan discussed with Dr. Espinoza Condition at Discharge: Good Final Diagnosis/Problems List Acute Gastroenteritis likely infectious' Acute leukocytosis Fever 101.2 recorded at o per patient Tachycardia admission Sepsis due to the above Acute abdomen, ruled out Right big toe open wound Asymptomatic pyuria Discharge Disposition: Home Discharge Instruct/Medications Diet: See Comment Diet comment: liquid diet for 3 days and advances as can tolerate Activity: Light activity Activity comment: Less weight on the right foot Follow Up/Referral: 7 days at the D/C clinic Medications: Unasyn Tylenol, if does not work then ibuprofen Discharge Statement: "Patient was advised to return to the ER or call 911 if any headaches, dizziness, shortness of breath, chest pain, abdominal pain, bleeding, fevers, or worsening of medical condition. Patient was counseled about treatment plan, medications, possible side effects, patient�verbalized understanding. All questions were answered to the best of my ability. This discharge took greater then 30 minutes in planning, reviewing documentation, counseling the patient, and discussing with other team members." ASSESSMENT ASSESSMENT Assessment Acute Gastroenteritis likely infectious' Acute leukocytosis Fever 101.2 recorded at o per patient Tachycardia admission Sepsis due to the above Acute abdomen, ruled out Right big toe open wound Asymptomatic pyuria BASILIA LEMA RESIDENT June 22, 2024 18:06
[2024-06-22 18:21] VITALS: TEMP 36.7
[2024-06-22] MEDS ORDERED: AUG875T PO (19:15)
[2024-06-22] MEDS ORDERED: ACET-1882 PO (19:15)
[2024-06-26] MEDS ORDERED: CIP500T GT (12:08)
== END 2024-06-22 18:50 | disposition home or self-care (01) | DRG 720 ==
LOC: ER 11:52 → OVERFLOW 16:06 → CENTRAL 06-21 00:50
PROVIDERS: ADMIT Student in an Organized Health Care Education/Training Program; ATTEND Student in an Organized Health Care Education/Training Program
DX: A41.9 Sepsis, unspecified organism (principal); A09 Infectious gastroenteritis and colitis, unspecified; S91.101A Unspecified open wound of right great toe without damage to nail, initial encounter; E86.0 Dehydration; J45.909 Unspecified asthma, uncomplicated; Z79.899 Other long term (current) drug therapy; Z87.11 Personal history of peptic ulcer disease; X58.XXXA Exposure to other specified factors, initial encounter; Y93.89 Activity, other specified; Y92.89 Other specified places as the place of occurrence of the external cause; Y99.8 Other external cause status
CPT/HCPCS: 36415; 74177; 80048; 80053; 81001; 83605; 83690; 85025; 87040; 87045; 87427; 87493; 99291; G0378; J2405; J2470; J3490